=== PATIENT | female | born 1985 | race Caucasian/White ===

== ENCOUNTER 2016-05-04 20:23 | Emergency (ER) | payer OTHER ==
[~2016-05-04] VITALS: Ht 162.6 cm; Wt 56.7 kg
[2016-05-04 21:10] LABS: ADD MIUA? YES; BILIRUBIN NEGATIVE; BLOOD NEGATIVE; COLOR AMBER ((YELLOW)); GLUCOSE (STRIP) NEGATIVE; KETONES 5; LEUKOCYTES NEGATIVE; NITRITE NEGATIVE; PROTEIN (STRIP) 30; SPECIFIC GRAVITY 1.036 (1.000-1.030)
[2016-05-04 21:16] LABS: INTERNAL CONTROL VALID? YES
[2016-05-04 21:20] LABS: BACTERIA NONE SEEN /HPF; EPITHELIAL CELLS 3+ /HPF; MUCUS TRACE /LPF; RED BLOOD CELLS 0-5 /HPF (0-5); UCUL ADDED? NO; WHITE BLOOD CELLS 0-5 /HPF (0-5)
[2016-05-04 21:43] LABS: HEMATOCRIT 39.1 % (36.0-46.0); MCH 31.6 PG (29.0-34.0); MCHC 34.3 G/DL (30.0-36.0); MCV 92.2 FL (83-99); MEAN PLAT.VOLUME 9.1 uM^3 (9.5-12.4); PLATELET COUNT 190 K/uL (156-360); RBC DIS.WIDTH-CV 12.4 % (11.8-14.6); RBC DIS.WIDTH-SD 41.9 % (39-53); RED BLOOD COUNT 4.24 M/uL (3.80-5.20); WHITE BLOOD COUNT 7.8 K/uL (4.1-10.2)
[2016-05-04 21:51] LABS: CHLORIDE 105 mEq/L (99-109); POTASSIUM 3.7 mEq/L (3.7-5.4); SODIUM 137 mEq/L (136-147)
[2016-05-04 21:54] LABS: GLUCOSE 95 mg/dL (70-99)
[2016-05-04 21:55] LABS: ANION GAP 8 MEQ/L (2-14)
[2016-05-04 21:56] LABS: TOTAL BILIRUBIN 1.2 mg/dL (0.0-1.0)
[2016-05-04 21:57] LABS: ALKALINE PHOSPHATASE 48 IU/L (3-129); GFR ESTIMATE (CALCULATED) > 59 mL/min/
[2016-05-04 21:58] LABS: UREA NITROGEN (BUN) 13 mg/dL (9-23)
[2016-05-04 22:01] LABS: LIPASE 18 U/L (1.0-51.0)
[2016-05-04 23:25] LABS: INFLUENZA A VIRAL ANTIGEN NEGATIVE; INFLUENZA B VIRAL ANTIGEN NEGATIVE
[2016-05-05 00:27] VITALS: BP 123/78
== END 2016-05-05 00:27 | disposition home or self-care (01) ==
LOC: EME 20:23
PROVIDERS: Physician Assistant
DX: R10.30 Lower abdominal pain, unspecified (principal); M54.9 Dorsalgia, unspecified; Z72.0 Tobacco use
CPT/HCPCS: 74177; 80053; 81003; 83690; 84703; 85027; 87502; 99281; 99285; J1885; J2270; J2405; J7120

== ENCOUNTER 2016-08-13 07:02 | Day surgery (SDC) | payer OTHER ==
[~2016-08-13] VITALS: Ht 162.6 cm; Wt 57.2 kg
[~2016-08-13 07:02] MED LIST: ADDERALL10 MG PO; ADDERALL30 MG PO; CLOTRIMAZOLE15 GM TP; FLEXERIL10 MG PO; INDERAL60 MG PO; KLONOPIN0.5 M1 PO; LAMICTAL100 MG PO; LAMICTAL25 MG PO; LORTAB 7.5-3251 EACH PO; PROZAC10 MG PO; WOMEN'S DAILY1 EAC4 PO
[2016-08-13 07:54] VITALS: BP 108/60
[2016-08-13 07:54] LABS: HEMATOCRIT 41.6 % (36.0-46.0); MCH 31.8 PG (29.0-34.0); MCHC 33.9 G/DL (30.0-36.0); MCV 93.7 FL (83-99); MEAN PLAT.VOLUME 9.8 uM^3 (9.5-12.4); PLATELET COUNT 251 K/uL (156-360); RBC DIS.WIDTH-CV 13.2 % (11.8-14.6); RBC DIS.WIDTH-SD 45.2 % (39-53); RED BLOOD COUNT 4.44 M/uL (3.80-5.20); WHITE BLOOD COUNT 9.8 K/uL (4.1-10.2)
[2016-08-13] MEDS ORDERED: IBUPROFEN800 MG PO (11:12)
[2016-08-13 12:47] VITALS: BP 105/79
[2016-08-13 13:47] VITALS: BP 114/79
[2016-08-13 14:40] VITALS: BP 108/60
== END 2016-08-13 14:40 | disposition home or self-care (01) ==
LOC: SDC 07:02
PROVIDERS: Obstetrics & Gynecology
DX: N80.0 Endometriosis of uterus (principal); N93.9 Abnormal uterine and vaginal bleeding, unspecified; N73.6 Female pelvic peritoneal adhesions (postinfective); F41.9 Anxiety disorder, unspecified; F90.1 Attention-deficit hyperactivity disorder, predominantly hyperactive type; Z88.2 Allergy status to sulfonamides; F17.210 Nicotine dependence, cigarettes, uncomplicated; Z82.49 Family history of ischemic heart disease and other diseases of the circulatory system; Z80.41 Family history of malignant neoplasm of ovary
CPT/HCPCS: 84702; 85027; 86900; 86901; 88305; J1100; J1170; J1885; J2250; J2405; J2710; J2765; J3010

== ENCOUNTER 2017-05-19 22:12 | Inpatient (IN) | payer OTHER ==
[~2017-05-19] VITALS: Ht 160 cm; Wt 60.8 kg
[~2017-05-19 22:12] MED LIST changes: +ELAVIL10 MG PO; +IBUPROFEN800 MG PO; +OXYCONTIN15 MG PO
[2017-05-20 10:37] VITALS: BP 108/69
[2017-05-20 17:56] LABS: HEMATOCRIT 33.6 % (36.0-46.0); HEMOGLOBIN 11.5 G/DL (11.9-15.5); MCH 32.1 PG (29.0-34.0); MCHC 34.2 G/DL (30.0-36.0); MCV 93.9 FL (83-99); PLATELET COUNT 184 K/uL (156-360); RBC DIS.WIDTH-CV 13.7 % (11.8-14.6); RBC DIS.WIDTH-SD 47.2 % (39-53); RED BLOOD COUNT 3.58 M/uL (3.80-5.20); WHITE BLOOD COUNT 12.4 K/uL (4.1-10.2)
[2017-05-20 18:15] LABS: CHLORIDE 108 MEQ/L (99-109); POTASSIUM 3.9 MEQ/L (3.7-5.4); SODIUM 136 MEQ/L (136-147)
[2017-05-20 18:31] LABS: CREATININE 0.6 MG/DL (0.6-1.3); GFR ESTIMATE (CALCULATED) > 59 mL/min/; GLUCOSE 151 mg/dL (70-99); UREA NITROGEN (BUN) 8 mg/dL (9-23)
[2017-05-20 20:19] VITALS: BP 123/65
[2017-05-20 23:37] VITALS: BP 119/84
[2017-05-21] VITALS (7 sets, daily range): BP systolic 94–121; BP diastolic 55–79
[2017-05-21 06:27] LABS: HEMATOCRIT 34.1 % (36.0-46.0); HEMOGLOBIN 11.5 G/DL (11.9-15.5); MCH 31.2 PG (29.0-34.0); MCHC 33.7 G/DL (30.0-36.0); MCV 92.4 FL (83-99); PLATELET COUNT 192 K/uL (156-360); RBC DIS.WIDTH-CV 13.3 % (11.8-14.6); RBC DIS.WIDTH-SD 45.6 % (39-53); RED BLOOD COUNT 3.69 M/uL (3.80-5.20); WHITE BLOOD COUNT 12.6 K/uL (4.1-10.2)
[2017-05-21 06:41] LABS: CHLORIDE 107 MEQ/L (99-109); CREATININE 0.6 MG/DL (0.6-1.3); GFR ESTIMATE (CALCULATED) > 59 mL/min/; GLUCOSE 177 mg/dL (70-99); POTASSIUM 4.3 MEQ/L (3.7-5.4); SODIUM 138 MEQ/L (136-147); UREA NITROGEN (BUN) 4 mg/dL (9-23)
[2017-05-21] MEDS ORDERED: OXYCODONE HCL5 MG PO (09:31)
[2017-05-22 03:52] VITALS: BP 99/54
[2017-05-22 06:37] LABS: HEMATOCRIT 30.7 % (36.0-46.0); HEMOGLOBIN 10.4 G/DL (11.9-15.5); MCH 31.8 PG (29.0-34.0); MCHC 33.9 G/DL (30.0-36.0); MCV 93.9 FL (83-99); PLATELET COUNT 160 K/uL (156-360); RBC DIS.WIDTH-CV 13.7 % (11.8-14.6); RED BLOOD COUNT 3.27 M/uL (3.80-5.20)
[2017-05-22 07:02] LABS: CHLORIDE 108 MEQ/L (99-109); CREATININE 0.6 MG/DL (0.6-1.3); GFR ESTIMATE (CALCULATED) > 59 mL/min/; POTASSIUM 3.8 MEQ/L (3.7-5.4); SODIUM 138 MEQ/L (136-147); UREA NITROGEN (BUN) 8 mg/dL (9-23)
[2017-05-22 07:03] LABS: GLUCOSE 86 mg/dL (70-99)
[2017-05-22 09:04] VITALS: BP 104/76
== END 2017-05-22 11:00 | disposition home or self-care (01) | DRG 743 ==
LOC: ENRESERV 22:12 → 2SOUTH 05-20 09:39 → ENRESERV 05-20 16:06 → 2EAST 05-20 17:05
PROVIDERS: Obstetrics & Gynecology Gynecologic Oncology
DX: N80.3 Endometriosis of pelvic peritoneum (principal); N83.201 Unspecified ovarian cyst, right side; R10.2 Pelvic and perineal pain
CPT/HCPCS: 36415; 80048; 84702; 85027; 86850; 86900; 86901; 86920; 88305; 88307; 94760; 94799; J0131; J0690; J1100; J1170; J1650; J1885; J2250; J2405; J2710; J2765; J7643